=== PATIENT | born 1995 | race African-American/Black ===

== ENCOUNTER 2021-05-01 11:02 | Emergency (ER) | payer MEDICAID ==
[2021-05-01] MEDS ORDERED: Metoclopramide 10 MG/2 ML SDV IVPUSH ONE (11:20)
[2021-05-01] MEDS ORDERED: Sodium Chloride 0.9% 1,000 ML IV ONE (11:20)
[2021-05-01] MEDS ORDERED: diphenhydrAMINE 50 MG/ML SDV IVPUSH ONE (11:20)
[2021-05-01] MEDS ORDERED: Ketorolac 30 MG/ML SDV IVPUSH ONE (11:20)
[2021-05-01] MEDS ORDERED: Sodium Chloride 0.9% 10 ML Syringe FLUSH PRN (11:20)
--- NOTE | 2021-05-01 11:27 | EDM.PDOC ---
ED HPI GENERAL MEDICAL PROBLEM - General Chief Complaint: Headache Stated Complaint: [facility] Time Seen by Provider: 05/01/21 11:11 Source of Information: Reports: Patient, EMS Notes Reviewed, RN Notes Reviewed History Limitations: Reports: No Limitations - History of Present Illness INITIAL COMMENTS - FREE TEXT/NARRATIVE: Patient is a 25-year-old male who presents to the ER for evaluation of a migraine headache. Patient was brought in by [facility] ambulance service. Patient notes that he has a history of migraine headaches, but states this feels something different. It started in the left side of his head, and now encompasses his whole head in a bandlike fashion. States he has not had a migraine in a few years. He does have some nausea with some vomiting. He took some Excedrin this morning around 7 AM with minimal relief. Patient does not account for any stressors in his life that would have triggered a migraine, but he is really light and sound sensitive. Patient smokes marijuana recreationally, quit smoking a little while ago, and states does not drink. Patient denies any other sick-like symptoms, fever/chills, cough/shortness of breath, or diarrhea. Headache Pain Score (Numeric/FACES): 10 - Related Data Allergies Allergy/AdvReac Type Severity Reaction Status Date / Time No Known Allergies Allergy Verified 05/01/21 11:06 Home Meds: Home Meds . [Unable to Verify Home Med List] 05/01/21 [History] Past Medical History Cardiovascular History: Reports: Other (See Below) Other Cardiovascular History: chest pain Respiratory History: Reports: Asthma Neurological History: Reports: Migraines Psychiatric History: Reports: ADHD, Depression - Past Surgical History Neurological Surgical History: Reports: Other (See Below) Other Neurological Surgeries/Procedures: neck surgery Social & Family History - Tobacco Use Tobacco Use Status *Q: Former Tobacco User Used Tobacco, but Quit: Yes Month/Year Tobacco Last Used: few weeks ago - Recreational Drug Use Recreational Drug Use: Yes Drug Use in Last 12 Months: Yes Recreational Drug Type: Reports: Marijuana/Hashish Recreational Drug Use Frequency: Daily ED ROS GENERAL - Review of Systems Review Of Systems: Comprehensive ROS is negative, except as noted in HPI. - Physical Exam Exam: See Below Exam Limited By: No Limitations General Appearance: Alert, WD/WN, No Apparent Distress Respiratory/Chest: No Respiratory Distress, Lungs Clear, Normal Breath Sounds, N o Accessory Muscle Use, Chest Non-Tender Cardiovascular: Normal Peripheral Pulses, Regular Rate, Rhythm, No Edema GI/Abdominal: Normal Bowel Sounds, Soft, Non-Tender, No Distention, No Mass Neuro Exam (Abbreviated): Alert, Oriented, Normal Cognition, No Motor/Sensory Deficits Extremities: Normal Inspection, Normal Capillary Refill Psychiatric: Normal Affect, Normal Mood Skin Exam: Warm, Dry, Intact, Normal Color, No Rash Course - Vital Signs Last Recorded V/S: Last Vital Signs Temp 97.6 F 05/01/21 11:04 Pulse 76 05/01/21 11:04 Resp 16 05/01/21 11:04 BP 104/68 05/01/21 11:04 Pulse Ox 100 05/01/21 11:04 - Orders/Labs/Meds Orders: Active Orders 24 hr Category Date Time Status Peripheral IV Care [RC] . DIRECTED Care 05/01/21 11:20 Ordered Sodium Chloride 0.9% [Saline Flush] Med 05/01/21 11:20 Active 10 ml FLUSH ASDIRECTED PRN Peripheral IV Insertion Adult [OM.PC] Routine Oth 05/01/21 11:20 Ordered Medication Orders Sodium Chloride (Sodium Chloride 0.9% 10 Ml Syringe) 10 ml FLUSH ASDIRECTED PRN PRN Reason: Keep Vein Open Last Admin: 05/01/21 11:36 Dose: 10 ml Documented by: SUPA Labs: Laboratory Tests 05/01/21 05/01/21 Range/Units 11:20 11:20 WBC 7.81 (4.23-9.07) K/mm3 RBC 4.36 L (4.63-6.08) M/mm3 Hgb 11.3 L (13.7-17.5) gm/dl Hct 35.6 L (40.1-51.0) % MCV 81.7 (79.0-92.2) fl MCH 25.9 (25.7-32.2) pg MCHC 31.7 L (32.2-35.5) g/dl RDW Std Deviation 47.3 H (35.1-43.9) fL Plt Count 310 (163-337) K/mm3 MPV 10.5 (9.4-12.3) fl Neut % (Auto) 60.6 (34.0-67.9) % Lymph % (Auto) 29.8 (21.8-53.1) % [place] % (Auto) 8.6 (5.3-12.2) % Eos % (Auto) 0.5 L (0.8-7.0) Baso % (Auto) 0.4 (0.1-1.2) % Neut # (Auto) 4.73 (1.78-5.38) K/mm3 Lymph # (Auto) 2.33 (1.32-3.57) K/mm3 [place] # (Auto) 0.67 (0.30-0.82) K/mm3 Eos # (Auto) 0.04 (0.04-0.54) K/mm3 Baso # (Auto) 0.03 (0.01-0.08) K/mm3 Sodium 142 (136-145) mEq/L Potassium 3.9 (3.5-5.1) mEq/L Chloride 108 H (98-107) mEq/L Carbon Dioxide 22 (21-32) mEq/L Anion Gap 15.9 H (5-15) BUN 13 (7-18) mg/dL Creatinine 0.9 (0.7-1.3) mg/dL Est Cr Clr Drug Dosing 79.80 mL/min Estimated GFR (MDRD) > 60 (>60) mL/min BUN/Creatinine Ratio 14.4 (14-18) Glucose 96 (70-99) mg/dL Calcium 8.6 (8.5-10.1) mg/dL Total Bilirubin 0.1 L (0.2-1.0) mg/dL AST 17 (15-37) U/L ALT 19 (16-63) U/L Alkaline Phosphatase 54 (46-116) U/L Total Protein 7.2 (6.4-8.2) g/dl Albumin 3.7 (3.4-5.0) g/dl Globulin 3.5 gm/dL Albumin/Globulin Ratio 1.1 (1-2) Meds: Medications Generic Name Dose Route Start Last Admin Trade Name Freq PRN Reason Stop Dose Admin Sodium Chloride 10 ml 05/01/21 11:20 05/01/21 11:36 Sodium Chloride 0.9% 10 Ml Syringe FLUSH 10 ml ASDIRECTED PRN Administration Keep Vein Open Discontinued Medications Generic Name Dose Route Start Last Admin Trade Name Freq PRN Reason Stop Dose Admin Diphenhydramine HCl 25 mg 05/01/21 11:20 05/01/21 11:35 Diphenhydramine 50 Mg/Ml Sdv IVPUSH 05/01/21 11:21 25 mg ONETIME ONE Administration Haloperidol Lactate 5 mg 05/01/21 13:38 05/01/21 13:49 Haloperidol Lactate 5 Mg/Ml Sdv IVPUSH 05/01/21 13:39 5 mg ONETIME ONE Administration Hydromorphone HCl 0.25 mg 05/01/21 12:09 05/01/21 12:18 Hydromorphone 0.5 Mg/0.5 Ml Syringe IVPUSH 05/01/21 12:10 0.25 mg ONETIME ONE Administration Sodium Chloride 1,000 mls @ 999 mls/hr 05/01/21 11:20 05/01/21 11:39 Normal Saline IV 05/01/21 12:20 999 mls/hr ASDIRECTED ONE Administration Ketorolac Tromethamine 30 mg 05/01/21 11:20 05/01/21 11:37 Ketorolac 30 Mg/Ml Sdv IVPUSH 05/01/21 11:21 30 mg ONETIME ONE Administration Metoclopramide HCl 5 mg 05/01/21 11:20 05/01/21 11:33 Metoclopramide 10 Mg/2 Ml Sdv IVPUSH 05/01/21 11:21 5 mg ONETIME ONE Administration - Re-Assessments/Exams Free Text/Narrative Re-Assessment/Exam: 05/01/21 11:25 Patient presents to the ER for the evaluation of his headache. Have ordered some medications to be given, IV fluids, will get basic labs for evaluation. Does sound like a migraine headache in general, we will reassess once medications have been given time to work. 05/01/21 12:12 Labs are unremarkable. The patient was reassessed at bedside, states that his headaches a little bit better, but it still pretty intense, go ahead and do 0.25 mg IV Dilaudid for ongoing pain management. 05/01/21 13:03 Patient states the headache is not much better with the medications given, I did discuss this with Dr. Cox and he does recommend getting a Head CT w/o contrast for further evaluation. I have ordered this. 05/01/21 13:[address] is negative for any acute findings. I did discuss the findings with the patient, and again he states that his headache is not much better, Dr. Cox did suggest trying Haldol in combination, so this has been ordered. 05/01/21 14:56 Patient's headache is much better, he wants to go home and rest. This is fine with me at this time, will discharge with general recommendations. Departure - Departure Time of Disposition: 14:56 Disposition: Home, Self-Care 01 Condition: Good Clinical Impression: Headache Qualifiers: Headache type: other headache syndrome Qualified Code(s): G44.89 - Other headache syndrome - Discharge Information *PRESCRIPTION DRUG MONITORING PROGRAM REVIEWED*: No *COPY OF PRESCRIPTION DRUG MONITORING REPORT IN PATIENT LILLY: No Instructions: General Headache Without Cause, [id number] Referrals: PCP,None [Primary Care Provider] - Forms: ED Department Discharge Additional Instructions: You were evaluated in the ED for your headache. You were given a combination of medications and IV fluid for management. This did seem to provide you pretty good relief of your symptoms. Head CT was performed at today's visit as well, and demonstrated no acute findings. Laboratory evaluation was unremarkable for any acute findings. Recommend that you go home and rest in a quiet, darkened room. Try also to keep well hydrated. Please return to the ED if your symptoms should change or worsen. Sepsis Event Note (ED) - Evaluation Sepsis Screening Result: No Definite Risk - Focused Exam Vital Signs: Vital Signs Temp Pulse Resp BP Pulse Ox 05/01/21 11:04 97.6 F 76 16 104/68 100 - My Orders Last 24 Hours: My Active Orders 05/01/21 11:20 Peripheral IV Care [RC] . DIRECTED Sodium Chloride 0.9% [Saline Flush] 10 ml FLUSH ASDIRECTED PRN Peripheral IV Insertion Adult [OM.PC] Routine - Assessment/Plan Last 24 Hours: My Active Orders 05/01/21 11:20 Peripheral IV Care [RC] . DIRECTED Sodium Chloride 0.9% [Saline Flush] 10 ml FLUSH ASDIRECTED PRN Peripheral IV Insertion Adult [OM.PC] Routine
[2021-05-01] MEDS ORDERED: HYDROmorphone 0.5 MG/0.5 ML Syringe IVPUSH ONE (12:09)
--- NOTE | 2021-05-01 13:36 | CT ---
CT brain Technique: Multiple axial sections through the brain were obtained. Intravenous contrast was not utilized. Reconstructed coronal and sagittal images were obtained. Comparison: No prior intracranial imaging is available. Findings: Ventricles along with basal cisterns and sulci over the convexities are within normal limits for the patient's age. No abnormal parenchymal densities are seen. No evidence of intracranial hemorrhage is seen. No midline shift or mass-effect is seen. Bone window settings were reviewed. Visualized mastoid sinuses and paranasal sinuses show nothing acute. No acute calvarial abnormality is appreciated. Impression: 1. Nothing acute is identified on noncontrast head CT study. Diagnostic code #1
[2021-05-01] MEDS ORDERED: Haloperidol Lactate 5 MG/ML SDV IVPUSH ONE (13:38)
== END 2021-05-01 15:04 | disposition home or self-care (01) ==
LOC: JD.ED 11:02
DX: G44.89 Other headache syndrome (principal); Z87.891 Personal history of nicotine dependence
CPT/HCPCS: 36415; 70450; 80053; 85025; 96374; 96375; 99284; J1170; J1200; J1630; J1885; J2765; J7030